=== PATIENT | male | born 1940 | race Caucasian/White ===

== ENCOUNTER → 2019-02-07 | Outpatient (CLI) | payer MEDICARE, OTHER ==
[~2019-02-07] MED LIST: ANTIHYPERTENSIVE PO; FINA5TAB41 PO; LORA10TA7 PO; SIMV-259 PO
== END | disposition home or self-care (01) ==
LOC: RADMN 09:03
PROVIDERS: ATTEND Internal Medicine
DX: J43.8 Other emphysema (principal); I70.0 Atherosclerosis of aorta; I25.10 Atherosclerotic heart disease of native coronary artery without angina pectoris
CPT/HCPCS: 71250; 94010; 94726; 94727; 94729

== ENCOUNTER → 2020-09-02 | Outpatient (CLI) | payer MEDICARE, OTHER ==
[~2020-09-02] VITALS: Ht 162.6 cm; Wt 68.9 kg
[~2020-09-02] MED LIST changes: +AMLO-257 PO; +ASPI-1444 PO; +ATOR40TA28 PO; +FINA-27 PO; -FINA5TAB41 PO; +LOSA50TA37 PO; +MAGN400T7 PO; +METF-960 PO; +MULT-1203 PO; +TAMS-13 PO
[2020-09-02 09:25] VITALS: BP 99/46
== END | disposition home or self-care (01) ==
LOC: SRCNTR 09:03
PROVIDERS: ATTEND Internal Medicine
DX: I10 Essential (primary) hypertension (principal); E11.9 Type 2 diabetes mellitus without complications; J44.9 Chronic obstructive pulmonary disease, unspecified; J98.4 Other disorders of lung; Z87.891 Personal history of nicotine dependence
CPT/HCPCS: G0463; Z7500